=== PATIENT | female | born 2000 | race Caucasian/White ===

== ENCOUNTER 2022-07-16 01:19 | Emergency (ER) | payer MEDICAID ==
[~2022-07-16] VITALS: Ht 157.5 cm; Wt 47.3 kg
[2022-07-16 01:36] VITALS: BP 105/61
[2022-07-16] MEDS ORDERED: METHYLPREDNISOLONE SOD SUCC 125 MG/2 ML VIAL IV ONE (02:30)
[2022-07-16] MEDS ORDERED: DIPHENHYDRAMINE 50MG/ML VIAL IV ONE (02:30)
[2022-07-16] MEDS ORDERED: SODIUM CHLORIDE 0.9% 1,000 ML IV SCH (02:30)
[2022-07-16] MEDS ORDERED: DIPHENHYDRAMINE 50MG/ML VIAL IM ONE (04:00)
[2022-07-16] MEDS ORDERED: DEXAMETHASONE 10 MG/ML VIAL IM ONE (04:00)
[2022-07-16] MEDS ORDERED: PRED10TA MT (04:04)
[2022-07-16] MEDS ORDERED: TC1U15 TP (04:04)
== END 2022-07-16 04:29 | disposition home or self-care (01) ==
LOC: ER 01:19
DX: J45.909 Unspecified asthma, uncomplicated (principal); L30.9 Dermatitis, unspecified
CPT/HCPCS: 96372; 99284; J1100; J1200